=== PATIENT | female | born 1975 | race Caucasian/White ===

== ENCOUNTER 2018-05-28 01:48 | Emergency (ER) | payer OTHER, SELFPAY ==
[2018-05-28 01:54] VITALS: BP 186/95; PULSE 86; RESP 18; TEMP 36.8; O2SAT 97
[2018-05-28] MEDS: PROPARACAINE 0.5% OPHTH SOL 1 DROPS EYE-RIGHT (03:16)
--- NOTE | 2018-05-28 03:57 | ED_ITS ---
HPI - Eye Problem General Chief complaint: Eye Problems Stated complaint: right eye scratch today Time Seen by Provider: 05/28/18 03:56 Source: patient Mode of arrival: ambulatory Limitations: no limitations History of Present Illness HPI Narrative: Is a 42-year-old female who states she was scratched in the eye by her dog when it jumped up onto her face. Patient has pain in the eye. No vision changes. She has had a little bit too. No other symptoms. She does not wear glasses or contacts. She does not have an tourist information assistant. Her tetanus was updated a urine half ago. Related Data Previous Rx's Medication Instructions Recorded glipizide 5 mg PO AMAC #30 tab 03/25/17 metformin [Glucophage XR] 1,000 mg PO BID #360 tab 07/14/17 amoxicillin-pot clavulanate 875 mg PO BID #20 tab 08/05/17 [Augmentin] acyclovir [Zovirax] 400 mg PO QID #35 tab 08/10/17 oxycodone-acetaminophen [Percocet] 1 tab PO Q6HP PRN #30 tab 08/10/17 hydrochlorothiazide 25 mg PO QDAY #90 tab 09/16/17 Allergies Allergy/AdvReac Type Severity Reaction Status Date / Time benzonatate [BENZONATATE] Allergy Unknown Verified 05/28/18 05:12 ciprofloxacin [CIPROFLOXACIN] Allergy Unknown Verified 05/28/18 05:12 Sulfa (Sulfonamide Allergy Unknown Verified 05/28/18 05:12 Antibiotics) [SULFA (SULFONAMIDE ANTIBIOTICS)] Review of Systems Review of Systems All systems reviewed & are unremarkable except as noted in HPI and below Eyes Denies blurry vision, Denies change in vision, Denies eye discharge, Reports irritation, Denies loss of vision, Reports eye pain, Denies requires corrective lenses and Reports photophobia Neurologic Denies loss of vision PFSH Family History Father Hypertension Mother Hypertension Depression Social History Smoking Status: Never smoker Exam Narrative Exam Narrative: GEN: Obese female, alert and oriented x 3, patient appears to be in mild distress. HEENT: Atraumatic, pupils are equal round reactive to light, extraocular movements are intact, nares are clear, Visual acuity: See chart General: no globe trauma Eyelids: normal inspection Conjunctiva/Sclera: normal inspection on left on the right slightly injected Corneas: normal inspection, examined with fluroscein on on the right patient has 3 small corneal abrasions and a vertical linear pattern at the 10:00 position running to the 7 o'clock position. EOM: intact, no palsy/entrapment Pupils: PERRL, normal accomadation, pupil normal Anterior Chambers: normal inspection, no hypema Posterior: normal fundoscopic on [right/left] MSCL: full range of motion, normal gait NEURO:CN 2-12 intact, Initial Vital Signs Initial Vital Signs: Vital Signs Temperature 98.2 F 05/28/18 01:54 Pulse Rate 86 05/28/18 01:54 Respiratory Rate 18 05/28/18 01:54 Blood Pressure 186/95 H 05/28/18 01:54 Pulse Oximetry 97 05/28/18 01:54 Course Orders Ordered: Discontinued Medications Erythromycin (Erythromycin Ophth Oint) 1 applic EYE-RIGHT NOW ONE Stop: 05/28/18 05:13 Last Admin: 05/28/18 05:19 Dose: 1 applic Proparacaine HCl (Parcaine 0.5% Ophth Jessica) 1 drops EYE-RIGHT NOW ONE Stop: 05/28/18 03:16 Last Admin: 05/28/18 03:16 Dose: 1 drops Vital Signs - 8 hr 05/28/18 01:54 05/28/18 05:50 Temperature 98.2 F Pulse Rate 86 80 Respiratory Rate 18 18 Blood Pressure 186/95 H 140/88 Pulse Oximetry 97 98 MDM - Eye Problem MDM Narrative Medical decision making narrative: Patient was given referral to Ophthalmology in asked for follow-up. She was initially when given ofloxacin eyedrops but has allergies to ciprofloxacin as well as sulfates. Patient was started on erythromycin ointment. She and I discussed signs and symptoms to watch for and reasons to return emergently. Discharge Plan Departure Patient Disposition: Home Clinical Impression: Abrasion, corneal Discharge Date/Time: 05/28/18 05:20 Interventions: ED Discharge Assessment Last Done: 05/28/18 05:50 Instructions: DI for Corneal Abrasion Activity Restrictions/Additional Instructions: Follow-up with Ophthalmology in the next 24 hr. Call for an appointment today. Use antibiotic ointment in a thin strip along the lower lid four times daily to the right eye every 6 hr x7 days unless cleared by Ophthalmology earlier Return to the emergency department for severe eye pain, vision changes, goopy or pus-like drainage from your eye. Prescriptions: No Action glipizide 5 MG tablet 5 mg PO AMAC Qty: 30 RF: 5 metformin [Glucophage XR] 500 MG tablet extended release 24 hr 1,000 mg PO BID Qty: 360 RF: 0 amoxicillin-pot clavulanate [Augmentin] 875 MG/125 MG tablet 875 mg PO BID Qty: 20 RF: 0 acyclovir [Zovirax] 400 MG tablet 400 mg PO QID Qty: 35 RF: 0 oxycodone-acetaminophen [Percocet] 5 MG/325 MG tablet 1 tab PO Q6HP PRNQty: 30 RF: 0 hydrochlorothiazide 25 MG tablet 25 mg PO QDAY Qty: 90 RF: 0 Referrals: Radha Charles MD [Physician] - Melisa Earl MD [Primary Care Provider] -
[2018-05-28] MEDS: ERYTHROMYCIN OPHTH 1 GM OINT 1 APPLIC EYE-RIGHT (05:19)
[2018-05-28 05:50] VITALS: BP 140/88; PULSE 80; RESP 18; O2SAT 98
== END 2018-05-28 05:20 | disposition home or self-care (01) ==
PROVIDERS: Emergency Provider Emergency Medicine; PCP Family Medicine
DX: S05.01XA Injury of conjunctiva and corneal abrasion without foreign body, right eye, initial encounter (principal); W54.8XXA Other contact with dog, initial encounter
CPT/HCPCS: 99282

== ENCOUNTER → 2018-09-29 11:09 | Outpatient (CLI) | payer OTHER, SELFPAY | PROVIDERS: Visit Provider Physician Assistant | DX: R68.89 Other general symptoms and signs (principal) | CPT/HCPCS: 87400 ==

== ENCOUNTER → 2018-09-29 12:33 | Outpatient (CLI) | payer OTHER, SELFPAY ==
--- NOTE | 2018-09-29 12:35 | DI.RAD.S_ITS ---
PROCEDURE: XR CHEST 2V INDICATIONS: COUGH TECHNIQUE: 2 views of the chest were acquired. COMPARISON: None. FINDINGS: Surgical changes and devices: Fixation hardware throughout thoracic spine is seen.. Lungs and pleura: Mildly increased vascular markings and bilateral hilar region are seen with mild bronchial wall thickening. No focal infiltrate. No pleural effusions or pneumothorax. Mediastinum: Mediastinal contours are normal. Heart size is enlarged. Bones and chest wall: No suspicious bony abnormalities. Soft tissues appear unremarkable. IMPRESSION: Suggestion of mild reactive airway disease. No definite focal infiltrate. Dictated by: Amos Luis M.D. on 09/29/2018 at 13:06 Approved by: Amos Luis M.D. on 09/29/2018 at 13:06
== END ==
PROVIDERS: Visit Provider Physician Assistant
DX: R05 Cough (principal); R68.89 Other general symptoms and signs
CPT/HCPCS: 71046; 87400

== ENCOUNTER → 2020-03-31 07:57 | Outpatient (CLI) | payer OTHER, SELFPAY ==
[2020-03-31 09:06] LABS: Add Manual Diff / Slide Review NO; Basophils Absolute Auto 0 /uL (0-100); Basophils Percent Auto 0.6 % (0-2); Eosinophils Absolute Auto 100 /uL (0-450); Eosinophils Percent Auto 1.1 % (2-4); Hematocrit 39.6 % (36-46); Hemoglobin 12.5 g/dL (12.0-16.0); Lymphocytes Absolute Auto 1800 /uL (1100-4500); Lymphocytes Percent Auto 25.3 % (25-40); Mean Corpuscular HGB Conc 31.6 % (30-36); Mean Corpuscular Hemoglobin 22.2 PG (26-34); Mean Corpuscular Volume 70.2 fL (80-100); Monocytes Absolute Auto 600 /uL (0-900); Monocytes Percent Auto 8.4 % (3-14); Neutrophils Absolute Auto 4700 /uL (1500-7000); Neutrophils Percent Auto 64.6 % (50-75); Platelet Count 333 X10^3/uL (150-400); Red Blood Cell Count 5.64 X10^6/uL (4.0-5.2); Red Cell Distribution Width 16.1 % (11.6-14.8); White Blood Cell Count 7.3 X10^3/uL (4.5-11.0)
[2020-03-31 09:12] LABS: Hemoglobin A1C% w Est Avg Glu 12.3 % (4.0-6.0)
[2020-03-31 09:22] LABS: Alanine Aminotransferase 55 IU/L (<35); Albumin 4.2 g/dL (3.5-5.0); Albumin Globulin Ratio 1.1 (1.0-2.8); Alkaline Phosphatase 102 U/L (38-126); Aspartate Aminotransferase 49 IU/L (14-36); BUN Creatinine Ratio 26.2 (6-22); Bilirubin Total 0.5 mg/dL (0.2-1.3); Blood Urea Nitrogen 11 mg/dL (7-17); Calcium 9.1 mg/dL (8.4-10.2); Carbon Dioxide 27 mmol/L (22-32); Chloride 101 mmol/L (98-107); Cholesterol 157 mg/dL (140-199); Estimated Glomerular Filt Rate > 60.0 mL/min (>60); Globulin 3.7 g/dL (1.7-4.1); Glucose 313 mg/dL (70-100); HDL Cholesterol 35 mg/dL (40-60); HEMOLYSIS < 15 (0-50); LDL Cholesterol Calculated 96 mg/dL (<100); Potassium 4.1 mmol/L (3.4-5.1); Sodium 139 mmol/L (137-145); Total Protein 7.9 g/dL (6.3-8.2); Triglycerides 129 mg/dL (35-150)
--- NOTE | 2020-03-31 14:21 | DI.MG.S_ITS ---
Patient Name: PEREZ SERNA date: 1975 Sex: F Attending Physician: Elsa Hermosillo Indications: Date: 03/31/2020 14:19 At the request of: SIXTO YOON Procedure: MM screening mammo BI BILATERAL DIGITAL SCREENING MAMMOGRAM 3D/2D WITH CAD: 03/31/2020 CLINICAL: Routine screening. Family history of breast cancer. Baseline exam. No prior exams were available for comparison. The tissue of both breasts is heterogeneously dense. This may lower the sensitivity of mammography. Current study was also evaluated with a Computer Aided Detection (CAD) system. There is a possible irregular equal density focal asymmetry in the right breast at 11 o'clock anterior depth. There also are two oval equal density lymph nodes in the right axillary tail without definite fatty hilum. No other significant masses, calcifications, or other findings are seen in either breast. IMPRESSION: INCOMPLETE: NEEDS ADDITIONAL IMAGING EVALUATION The possible irregular equal density focal asymmetry in the right breast at 11 o'clock anterior depth is indeterminate. Additional views with possible ultrasound are recommended. The oval equal density lymph nodes in the right axillary tail are indeterminate. Additional views with possible ultrasound are recommended. This exam was interpreted at Station ID: [id number]. NOTE: For mammograms, a report in lay terms will be sent to the patient. Approximately 15% of breast malignancies will not be visualized mammographically. In the management of a palpable breast mass, a negative mammogram must not discourage biopsy of a clinically suspicious lesion. Electronically Signed By: Luis William M.D. aty/:04/02/2020 08:57:49 Continued Report - Page 2 of 2 Patient Name: PEREZ SERNA date: 1975 Sex: F Attending Physician: Elsa Hermosillo Indications: Date: 03/31/2020 14:19 At the request of: SIXTO YOON Procedure: MM screening mammo BI letter sent: Additional Imaging Needed ACR BI-RADS Category 0: Incomplete 3340F
== END ==
PROVIDERS: PCP Registered Nurse; Referring Provider Registered Nurse; Visit Provider Registered Nurse
DX: Z00.01 Encounter for general adult medical examination with abnormal findings (principal); Z12.31 Encounter for screening mammogram for malignant neoplasm of breast; Z80.3 Family history of malignant neoplasm of breast; E11.9 Type 2 diabetes mellitus without complications; I10 Essential (primary) hypertension
CPT/HCPCS: 36415; 77063; 77067; 80053; 80061; 83036; 85025

== ENCOUNTER → 2020-04-02 08:13 | Outpatient (CLI) | payer OTHER, SELFPAY ==
--- NOTE | 2020-04-02 08:14 | DI.US.S_ITS ---
PROCEDURE: US PELVIC COMPLETE INDICATIONS: FIBROIDS TECHNIQUE: Real-time scanning was performed of the pelvic organs, with image documentation. Additional endovaginal scanning was necessary due to incomplete visualization of the adnexal and endometrial structures by transabdominal scanning. COMPARISON: [facility], PELVIC COMPLETE, 11/18/2013, 13:38. [facility], , PELVIC COMPLETE, 05/12/2017, 7:24. FINDINGS: Transabdominal scanning: Limited scanning through the kidneys shows no hydronephrosis. No pathologic free abdominal or pelvic fluid. Endovaginal scanning: Uterus: Uterus is normal in size at 8.6 x 5.3 x 5.4 cm. The endometrium measures 14 mm in combined thickness. Hypoechoic uterine lesions are seen, which are attributed to fibroids. They measure as follows: Right posterior uterus, intramural, 2 x 2.5 x 2.3 cm Right posterior uterus, intramural, 2 x 1.9 x 1.3 cm Ovaries: The right is not seen. The left ovary measures 3.2 x 1.9 x 3 cm and demonstrates a simple appearing cyst that measures up to 2.3 cm, which is considered to be within physiologic limits.. No adnexal masses are seen. IMPRESSION: No imaging explanation is found for this patient's presenting symptoms. Uterine fibroids are seen. Nonvisualization of the right ovary. The left ovary demonstrates a 2.3 cm simple cyst, which is considered to be within physiologic limits. Dictated by: Kushal Sotelo M.D. on 04/02/2020 at 10:19 Approved by: Kushal Sotelo M.D. on 04/02/2020 at 10:22
== END ==
PROVIDERS: PCP Registered Nurse; Referring Provider Registered Nurse; Visit Provider Registered Nurse
DX: D25.1 Intramural leiomyoma of uterus (principal); N83.292 Other ovarian cyst, left side
CPT/HCPCS: 76856

== ENCOUNTER 2020-04-24 14:02 | Day surgery (SDC) | payer OTHER, SELFPAY ==
[2020-04-24] VITALS (7 sets, daily range): BP systolic 158–184; BP diastolic 79–103; PULSE 83–97; RESP 12–18; TEMP 36.7–36.8; O2SAT 95–98; BMI 63.6
--- NOTE | 2020-04-24 | PATH_ITS ---
[facility] Accession Number: [id number] . 01 Material submitted: . PART A: endometrium - ENDOMETRIAL CURETTINGS PART B: cervix - CERVICAL POLYP . 01 Clinical history: . SDC . 02 Diagnosis: A. Endometrial Curettings: Portions of disordered proliferative endometrium; negative for glandular hyperplasia, cytologic atypia, or malignancy. Some endometrial fragments demonstrate prominent vessels, suggestive of polyp, if clinical and imaging studies are concordant. There are scattered portions of myometrium with no evidence of cytologic atypia, increased mitotic activity, or necrosis; findings could be suggestive of a submucosal leiomyoma, in the appropriate clinical context. . B. Cervical Polyp: Multiple portions of endometrial polyp with benign (nonatypical / simple) glandular hyperplasia in a background of disordered proliferative endometrium; negative for atypical hyperplasia or malignancy. Fibromuscular tissue fragments, consistent with myometrium or leiomyoma, in the appropriate clinical setting; negative for glandular hyperplasia, cytologic atypia, or malignancy. [facility] 04/26/2020 1506 Local . 02 Comment: As part of routine quality tech, this case was also reviewed by Drs. Varghese and Kristina, who agree with the interpretation. . 02 Electronically signed: . Chrissie Tran MD, Pathologist NPI- [id number] . 01 Gross description: . Part A: ENDOMETRIAL CURETTINGS: Received in formalin are minute fragments of mucoid and hemorrhagic material measuring 2.0 x 2.0 x 0.4 cm in aggregate. Submitted in toto in 2 cassettes. Part B: CERVICAL POLYP: Received in formalin are multiple fragment(s) of hernandez, soft tissue measuring 0.1 x 0.1 x 0.1 cm to 3.5 x 2.5 x 1.5 cm which are serially sectioned and submitted entirely in 9 cassette(s) /MARK 04/25/2020 0146 Local . 02 Pathologist provided ICD-10: D25.9, N93.9, N84.0 . 02 CPT . 048038, 351997 Performed at: 01 [facility] [address] [id number] MD Yonatan Eli MD Phone: [phone] Performed at: 02 [facility] [address] [place], [place] [id number] MD Madeleine Varghese MD Phone: [phone]
[2020-04-24 14:40] LABS: COVID19 -Nasal RAPID Negative (Negative)
[2020-04-24] MEDS: LACTATED RINGERS 1,000 ML 100 ML IV ×2 (14:49→17:40)
[2020-04-24 15:19] LABS: Add Manual Diff / Slide Review NO; Basophils Absolute Auto 100 /uL (0-100); Eosinophils Absolute Auto 100 /uL (0-450); Eosinophils Percent Auto 0.8 % (2-4); Hematocrit 36.3 % (36-46); Hemoglobin 11.4 g/dL (12.0-16.0); Lymphocytes Absolute Auto 2500 /uL (1100-4500); Lymphocytes Percent Auto 24.2 % (25-40); Mean Corpuscular HGB Conc 31.3 % (30-36); Mean Corpuscular Hemoglobin 21.2 PG (26-34); Mean Corpuscular Volume 67.8 fL (80-100); Monocytes Absolute Auto 1000 /uL (0-900); Monocytes Percent Auto 9.3 % (3-14); Neutrophils Absolute Auto 6800 /uL (1500-7000); Neutrophils Percent Auto 64.7 % (50-75); Platelet Count 343 X10^3/uL (150-400); Red Blood Cell Count 5.35 X10^6/uL (4.0-5.2); Red Cell Distribution Width 16.2 % (11.6-14.8); White Blood Cell Count 10.5 X10^3/uL (4.5-11.0)
[2020-04-24 15:31] LABS: Hypochromasia 1+; Microcytosis 3+
--- NOTE | 2020-04-24 15:53 | PM.PREOP ---
Pre-operative Note COVID-19 COVID-19 status: Negative Result date/Date tested (Pos, Neg/Pending): 04/24/20 Interval Note History & Physical reviewed/Exam performed by Physician: Yes Changes to H&P: No
--- NOTE | 2020-04-24 16:30 | SUR.OPER ---
Lithotomy on padded OR bed, head on pillow, arms secured on padded arm boards at <90 degrees abduction. Legs secured in padded yellow fins stirrups.
--- NOTE | 2020-04-24 16:41 | SUR.OPER ---
Lithotomy on padded OR bed, head on pillow, arms secured on padded arm boards at <90 degrees abduction. Legs secured in padded yellow fins stirrups.
--- NOTE | 2020-04-24 16:52 | SUR.OPER ---
MONSELS SOLUTION INTRAVAGINAL
[2020-04-24] MEDS: SODIUM CHLORIDE 0.9% 30 ML, VASOPRESSIN 20 UNIT INJ (16:56)
--- NOTE | 2020-04-24 17:15 | PM.OP.1 ---
Operative Date/Time/Diagnoses Date of procedure: 04/24/20 Time of procedure: 17:27 Pre-op diagnosis: Prolapsed uterine fibroid Post-op diagnosis: other (Prolapsed endocervical polyp) Procedure & Clinicians Procedure: Exam under anesthesia, operative hysteroscopy, dilation and curettage Same procedure as scheduled: Yes Indications: Prolapsed suspected endocervical polyp with hemorrhage Surgeon: Ade Haerd Migration Specialist: Lynette Van Anesthesia Type: Sedation Operative Notes Findings: 4 cm x 4 cm endocervical polyp prolapsing through cervical os. Specimen(s): other (Endocervical polyp, endometrial curettings) Estimated Blood Loss (mL): 20 Procedure in detail: After informed consent was obtained, the patient was taken to the operating room where IV sedation was obtained and an LMA was placed. She was placed in the dorsal lithotomy position and prepped and draped in the usual sterile fashion. A speculum was inserted in the vagina, and the large prolapsing mass was observed. Hemostasis did previously been achieved in the office with Monsel solution, some of which was visible. The speculum was removed, and an exam under anesthesia performed. The prolapsing mass was felt to be pedunculated, on a stalk originating approximately 1 cm in from the external cervical os on the anterior wall of the cervix. The mass was grasped and twisted manually, and easily removed. The cervix was found to be dilated to 1 cm manually. The anterior lip of the cervix was grasped with a ring forceps and the hysteroscope was used to enter the endometrial cavity with no dilation necessary, though hydrodilation was difficult to maintain due to the dilated cervix. The endometrial cavity was noted to be covered in fluffy endometrium, but no calcifications, abnormal vascularity, or discrete lesions were noted. The hysteroscope was removed, and a gentle dilation and curettage was performed. The hysteroscope was reinserted into the cervix, where the remaining stalk of the prolapsed polyp was visualized. The hysteroscopic loop was used to cauterize the base of the stalk. Good hemostasis was achieved, and 2 scope pets were used to apply Monsel's to the area to maintain hemostasis. The ring forceps was removed from the cervix with good spontaneous hemostasis noted on observation. The speculum was removed from the vagina. The patient tolerated the procedure well was taken to the PACU in stable condition. IVF: 900ccs Sorbitol fluid deficit: 50 cc Complications: none Post-operative Condition: stable Disposition: PACU Plan for aftercare: Discharge home with routine precautions. NSAIDs and Tylenol for pain control.
[2020-04-24] MEDS: OXYCODONE/ACETAMINOPHEN 5/325 TABLET 1 TAB PO (17:29)
== END 2020-04-24 17:59 | disposition home or self-care (01) ==
PROVIDERS: PCP Registered Nurse; Referring Provider Obstetrics & Gynecology; Visit Provider Obstetrics & Gynecology
PROC: 0UDB8ZZ Extraction of Endometrium, Via Natural or Artificial Opening Endoscopic (ICD-10-PCS; CPT 58558; principal; 2020-04-24 16:00)
DX: D25.9 Leiomyoma of uterus, unspecified (principal); E66.01 Morbid (severe) obesity due to excess calories; Z11.59 Encounter for screening for other viral diseases; E11.9 Type 2 diabetes mellitus without complications; N84.0 Polyp of corpus uteri
CPT/HCPCS: 58558; 36415; 85025; 86850; 86900; 86901; 87635; J3010

== ENCOUNTER → 2020-04-26 14:15 | Outpatient (CLI) | payer OTHER, SELFPAY ==
--- NOTE | 2020-04-26 | DI.MG.S_ITS ---
UNILATERAL RIGHT DIGITAL DIAGNOSTIC MAMMOGRAM 3D/2D WITH ADDITIONAL VIEWS: 04/26/2020 CLINICAL: Additional evaluation requested from prior study. Comparison is made to exam dated: 03/31/2020 [facility]. The tissue of right breast is heterogeneously dense. This may lower the sensitivity of mammography. Possible focal asymmetry in the right breast at 11 o'clock anterior depth. This is not seen in additional views. Right breast calcified fibroadenoma. Benign intramammary lymph nodes. No other significant masses or calcifications are seen in the breast. IMPRESSION: BENIGN There is no mammographic evidence of malignancy. Possible focal asymmetry in the right breast does not persist on additional views. A 1 year screening mammogram is recommended. Exam findings were conveyed to the patient. This exam was interpreted at Station ID: [id number]. NOTE: For mammograms, a report in lay terms will be sent to the patient. Approximately 15% of breast malignancies will not be visualized mammographically. In the management of a palpable breast mass, a negative mammogram must not discourage biopsy of a clinically suspicious lesion. Electronically Signed By: Joaquin Sullivan M.D. slc/:04/26/2020 14:54:50 letter sent: Normal Exam ACR BI-RADS Category 2: Benign Finding(s) 3342F
== END ==
PROVIDERS: PCP Registered Nurse; Referring Provider Registered Nurse; Visit Provider Registered Nurse
DX: R92.8 Other abnormal and inconclusive findings on diagnostic imaging of breast (principal); D24.1 Benign neoplasm of right breast
CPT/HCPCS: 77065; G0279

== ENCOUNTER → 2020-05-01 08:49 | Outpatient (CLI) | payer OTHER, SELFPAY ==
--- NOTE | 2020-05-01 10:00 | DIET.PN ---
Diabetes Intake: Initial Assessment Assess: Mrs. Booth is a 44 YOF referred for type 2 diabetes. She was diagnosed one month ago, but endorses pre-diabetes for several years. She was placed on metformin and glipizide several years ago, but admits she did not take them as directed and eventually discontinued completely as she was caring for her . She has lost nearly 100lbs over the last year through dietary changes including cutting out all soda and has been eating out less since working from home. She has an exercise goal of 2000 steps per day which she typically gets by walking her dog. She received a glucometer yesterday and just began monitoring. Labs: Per pt report: A1c: 12.3 Meds: metformin 1000mg BID; glipizide 10 mg Diet: per 24 hr recall: B: eggs w/ sausage or keating L: pre- made salad D: spaghetti; beef stew; tacos; burgers Sn: smart pop; cashews; cheese Wt: 383lb Ht: 65in BMI: 63.7 DX: Altered nutrition related laboratory values related to impaired glucose metabolism, lack of previous exposure to nutrition information as evidenced by pt report, diagnosis of diabetes, previous diet high in refined carbohydrates. Intervention: 1. Completed intake assessment. Discussed barriers to care. 2. Discussed pathophysiology of diabetes. Reviewed A1c and its correlation to blood glucose numbers. Discussed recommended BG ranges. 3. Discussed importance of self-monitoring, how often, and when to check. Provided demonstration on use of glucometer. 4. Reviewed hyper/hypoglycemia and treatment. 5. Reviewed safe disposal of equipment (strip/lancets/insulin needles). 6. Created SMART goals for pt self-care and success. 7. Discussed program curriculum outline and class needs based on individual goals. SMART Goals: 1. Patient would like to lose 20lb (5%) in the next 3 mo by reducing portions, learning carbohydrate consistency, and incorporating 30 minutes of exercise 4-5 days per week. Monitor/Evaluate: Anticipate excellent compliance. Pt will attend full DSME program. Physiology and Medications class scheduled for May 08.
== END ==
PROVIDERS: PCP Registered Nurse; Referring Provider Registered Nurse; Visit Provider Registered Nurse
DX: E11.9 Type 2 diabetes mellitus without complications (principal); E66.9 Obesity, unspecified; Z68.44 Body mass index [BMI] 60.0-69.9, adult; Z71.3 Dietary counseling and surveillance; Z79.84 Long term (current) use of oral hypoglycemic drugs
CPT/HCPCS: G0108

== ENCOUNTER → 2020-05-08 09:41 | Outpatient (CLI) | payer OTHER, SELFPAY ==
--- NOTE | 2020-05-08 11:55 | DIET.PN ---
Diabetes Physiology: Intervention 1. Diabetes physiology 2. Detecting and treatment of acute and chronic complications 3. Diagnosis of and difference in types of diabetes 4. Self-monitoring and pattern management a. Demonstrate glucometer and control testing b. Explain BG results and action to take when out of range. 5. Foot , eye, dental care 6. Medications a. Oral medication classification b. Injectable c. Insulin i. Injection protocol ii. Other delivery methods
== END ==
PROVIDERS: PCP Registered Nurse; Referring Provider Registered Nurse; Visit Provider Registered Nurse
DX: E11.9 Type 2 diabetes mellitus without complications (principal); Z71.3 Dietary counseling and surveillance
CPT/HCPCS: G0109

== ENCOUNTER → 2020-05-17 10:05 | Outpatient (CLI) | payer OTHER, SELFPAY ==
--- NOTE | 2020-05-17 11:20 | DIET.PN ---
Diabetes Exercise/Lifestyle change: 1. Importance of exercise 2. FITT (frequency, intensity, time, type) 3. Strength training tips and guidelines 4. Glucose monitoring/ranges before and after a.Carbohydrate needs based on glucose ranges and duration/intensity of exercise b. Rule of 15 5. Proper foot attire 6. Developing strategies for behavior change 7. SMART Goal Setting 8. Home exercise routine demonstration (as a class)
== END ==
LOC: DIET 10:05
PROVIDERS: PCP Registered Nurse; Referring Provider Registered Nurse; Visit Provider Registered Nurse
DX: E11.9 Type 2 diabetes mellitus without complications (principal); Z71.3 Dietary counseling and surveillance
CPT/HCPCS: G0109

== ENCOUNTER → 2020-06-28 09:31 | Outpatient (CLI) | payer OTHER, SELFPAY ==
--- NOTE | 2020-06-28 11:28 | DIET.PN ---
Diabetes: Healthy Eating 1 Intervention: ? Discussed pathophysiology of diabetes and impact of nutrition/diet on blood sugar control.? Discussed fed versus non-fed state.?? ? Reviewed importance of Balance, Variety, and Moderation. ? Discussed the effect of carbohydrates/protein/fat on blood sugar control.? ? Stressed importance of consistent carbohydrate intake at each meal and provided instructions for recommended servings/portions of carbohydrates/protein per meal. Provided educational material. ? Reviewed carbohydrate counting and measuring carbohydrate content via serving sizes and reading nutrition labels.? Provided handouts.?? ? Discussed the difference between simple versus complex carbohydrates and the effect of fiber on blood sugar control.? Discussed various methods to increase fiber content in diet. ? Discussed the plate method for creating more carbohydrate conscious balanced meals. ? Stressed importance of meal timing and not going >4-5 hours between meals. Encouraged adding protein to evening snack to support glucose control overnight. ? Discussed importance of making dietary habits part of lifestyle change.
[2020-06-29 03:43] LABS: HBsAg Screen Negative (Negative); Hepatitis A Antibody IgM Negative (Negative); Hepatitis B Core Antibody IgM Negative (Negative); Hepatitis C Antibody <0.1 s/co ratio (0.0-0.9)
== END ==
PROVIDERS: PCP Registered Nurse; Referring Provider Internal Medicine; Visit Provider Registered Nurse
DX: E11.9 Type 2 diabetes mellitus without complications (principal); R74.8 Abnormal levels of other serum enzymes; Z71.3 Dietary counseling and surveillance
CPT/HCPCS: 36415; 80074; G0109

== ENCOUNTER → 2020-07-03 09:48 | Outpatient (CLI) | payer OTHER, SELFPAY ==
--- NOTE | 2020-07-03 11:47 | DIET.PN ---
Diabetes: Healthy Eating 2 Intervention: Fats effects on glucose, weight, heart disease, cholesterol Sat Vs Unsat Protein- animal and plant based options Low, med, high fat meats Sugar substitutes Sodium Health claims Grocery shopping guidelines Eating away from home Alcohol Sick day guidelines Ketone Testing
== END ==
PROVIDERS: PCP Registered Nurse; Referring Provider Registered Nurse; Visit Provider Registered Nurse
DX: E11.9 Type 2 diabetes mellitus without complications (principal); Z71.3 Dietary counseling and surveillance
CPT/HCPCS: G0109

== ENCOUNTER → 2020-07-06 07:52 | Outpatient (CLI) | payer OTHER, SELFPAY ==
[2020-07-06 09:09] LABS: Cortisol AM (Before 10AM) 13.4 ug/dL (4.46-22.7)
== END ==
PROVIDERS: PCP Internal Medicine; Referring Provider Internal Medicine; Visit Provider Internal Medicine
DX: E11.9 Type 2 diabetes mellitus without complications (principal)
CPT/HCPCS: 36415; 82533

== ENCOUNTER → 2020-07-07 07:58 | Outpatient (CLI) | payer OTHER, SELFPAY ==
[2020-07-07 10:10] LABS: Cortisol AM (Before 10AM) 1.05 ug/dL (4.46-22.7)
== END ==
PROVIDERS: PCP Internal Medicine; Referring Provider Internal Medicine; Visit Provider Internal Medicine
DX: E11.9 Type 2 diabetes mellitus without complications (principal)
CPT/HCPCS: 36415; 82533

== ENCOUNTER → 2020-07-19 08:34 | Outpatient (CLI) | payer OTHER, SELFPAY ==
[2020-07-19 09:29] LABS: Add Manual Diff / Slide Review NO; Alanine Aminotransferase 46 IU/L (<35); Albumin 4.1 g/dL (3.5-5.0); Alkaline Phosphatase 75 U/L (38-126); Aspartate Aminotransferase 45 IU/L (14-36); BUN Creatinine Ratio 29.2 (6-22); Basophils Absolute Auto 100 /uL (0-100); Bilirubin Total 0.4 mg/dL (0.2-1.3); Blood Urea Nitrogen 14 mg/dL (7-17); Calcium 9.2 mg/dL (8.4-10.2); Carbon Dioxide 27 mmol/L (22-32); Chloride 103 mmol/L (98-107); Eosinophils Absolute Auto 200 /uL (0-450); Eosinophils Percent Auto 2.5 % (2-4); Estimated Glomerular Filt Rate > 60.0 mL/min (>60); Glucose 153 mg/dL (70-100); HEMOLYSIS < 15 (0-50); Hematocrit 38.2 % (36-46); Hemoglobin 11.7 g/dL (12.0-16.0); Lymphocytes Absolute Auto 2300 /uL (1100-4500); Lymphocytes Percent Auto 26.2 % (25-40); Mean Corpuscular HGB Conc 30.7 % (30-36); Mean Corpuscular Volume 65.1 fL (80-100); Monocytes Absolute Auto 700 /uL (0-900); Monocytes Percent Auto 8.4 % (3-14); Neutrophils Absolute Auto 5500 /uL (1500-7000); Neutrophils Percent Auto 61.9 % (50-75); Platelet Count 417 X10^3/uL (150-400); Potassium 3.7 mmol/L (3.4-5.1); Red Blood Cell Count 5.87 X10^6/uL (4.0-5.2); Red Cell Distribution Width 19.4 % (11.6-14.8); Sodium 138 mmol/L (137-145); Total Protein 8.1 g/dL (6.3-8.2); White Blood Cell Count 8.8 X10^3/uL (4.5-11.0)
[2020-07-19 09:42] LABS: Hemoglobin A1C% w Est Avg Glu 7.2 % (4.0-6.0)
[2020-07-19 09:58] LABS: Cortisol AM (Before 10AM) 7.83 ug/dL (4.46-22.7)
[2020-07-19 10:23] LABS: Anisocytosis 1+; Hypochromasia 1+; Microcytosis 2+
[2020-07-19 10:24] LABS: TSH w/ Reflex to FT4 2.85 uIU/mL (0.47-4.68)
[2020-07-19 11:31] LABS: Creatinine Urine Random 274.9 mg/dL
[2020-07-19 11:36] LABS: Microalbumi Creatinin Ratio Ur 10.9 ug/mg CR (<30)
[2020-07-20 06:08] LABS: Insulin Level Total 49.9 uIU/mL (2.6-24.9)
== END ==
PROVIDERS: PCP Internal Medicine; Referring Provider Internal Medicine; Visit Provider Internal Medicine
DX: I10 Essential (primary) hypertension (principal); R53.83 Other fatigue; R71.8 Other abnormality of red blood cells; E11.9 Type 2 diabetes mellitus without complications; E78.5 Hyperlipidemia, unspecified
CPT/HCPCS: 36415; 80053; 82043; 82533; 82570; 83036; 83525; 84443; 85025

== ENCOUNTER → 2020-07-19 08:38 | Outpatient (CLI) | payer OTHER, SELFPAY ==
--- NOTE | 2020-07-19 10:01 | DIET.PN ---
DIABETES Nutrition Initial Assessment:? ASSESS:?? Mrs Booth is a 44 yof??referred for type 2 diabetes seen as part of DSME program. She has been monitoring her glucose 3x/day and taking her medication as instructed. She continues to avoid all sugar sweetened beverages and has been working on portion control and carb consistency. She is up to 2500 steps per day. ??? LABS: Per pt report:? pending ? MEDS:??metformin 1000mg BID; glipizide 5mg ? DIET: Per 24-hour recall:? B: egg sausage, vegetable smoothie L: vega master (treat meal) D: dill pickle salad Sn: smart pop, cheese sticks, cottage cheese Eating Out: 2-3 x/wk Changes in Appetite: reduced Nutrition Supplements: apple cider vinegar ? Weight: 379lb Height: 65in BMI: ? 63 ? Exercise:? 2500 steps/day NUTRITION DX 1. Altered Nutrition related labs related to impaired glucose metabolism, lack of previous exposure to accurate nutrition information as evidenced by pt report, dx of diabetes, previous diet high in refined carbohydrates.? INTERVENTION(s): 1. Reviewed pathophysiology of diabetes and impact of nutrition/diet on blood sugar control.? 2. Reviewed the effect of carbohydrates/protein/fat on blood sugar control.? Stressed importance of consistent carbohydrate intake at each meal and provided instructions for recommended servings/portions of carbohydrates/protein per meal. 3. Reviewed carbohydrate counting and measuring carbohydrate content via serving sizes and reading nutrition labels.? 4. Stressed importance of meal timing and not going >4-5 hours between meals. Recommended setting timer to remind to eat. 5. Discussed healthy weight loss goals of 1-2lbs per week through diet and exercise.? Pt agreeable to walking at least 30 minutes daily. 6. Recommend monitoring fasting and alternating 2 hr PP mealtime glucose. MONITOR/EVALUATE: Anticipate good compliance.? Follow-up scheduled for 1 month.
[2020-07-19 10:02] VITALS: BMI 63.2
== END ==
PROVIDERS: PCP Internal Medicine; Referring Provider Registered Nurse; Visit Provider Registered Nurse
DX: E11.9 Type 2 diabetes mellitus without complications (principal); Z79.84 Long term (current) use of oral hypoglycemic drugs; E66.9 Obesity, unspecified; Z68.44 Body mass index [BMI] 60.0-69.9, adult; Z71.3 Dietary counseling and surveillance
CPT/HCPCS: G0109

== ENCOUNTER → 2020-09-13 10:47 | Outpatient (CLI) | payer OTHER, SELFPAY ==
--- NOTE | 2020-09-13 12:14 | DIET.PN ---
Diabetes Follow Up Assess: Met for Ms. Booth?s 3 mo follow up visit. She is happy with how her blood sugars have been and with reduced A1c. She is feeling better with numbers in the normal ranges rather than hypoglycemic. She has added turmeric and an iron supplement as she has been having severe anemia. She has added a mid-morning snack to help limit over eating by lunch time. She admits her eating habits have not been very good the last few weeks due to work stress. Labs: A1c: 7.2 (from 12.3) Meds: metformin 1000mg BID; glipizide 5mig Dietary changes: Trying to cook at home more and eat more lean meats (chicken, loin, roast) Ht: 65in Wt: 382 BMI: 63.5 Nutrition DX: Altered nutrition related laboratory values related to impaired glucose metabolism, lack of previous exposure to nutrition information as evidenced by pt report, diagnosis of diabetes, previous diet high in refined carbohydrates. Intervention: 1. Completed follow up assessment. Reviewed barriers to care. 2. Reviewed new labs and importance of continued BG monitoring. 3. Reviewed SMART goals and made modifications where appropriate including wt management, activity, and A1c goals. 4. Discussed plan for ongoing support. Provided information for continued support and success. SMART goals: 1. Pt original goal of 25# weight loss in the next 3 mo (50# in 6mo, 100# 1 yr) by reducing portions, learning carb counting/consistency, and incorporating 30 min of exercise 4-5 days per week. Monitor/Evaluate: Pt will follow up in 3 mo to discuss new labs and barriers to care.
== END ==
PROVIDERS: PCP Internal Medicine; Referring Provider Internal Medicine; Visit Provider Internal Medicine
DX: E11.9 Type 2 diabetes mellitus without complications (principal); D64.9 Anemia, unspecified; E66.9 Obesity, unspecified; Z68.44 Body mass index [BMI] 60.0-69.9, adult; Z71.3 Dietary counseling and surveillance; Z79.84 Long term (current) use of oral hypoglycemic drugs
CPT/HCPCS: G0109

== ENCOUNTER → 2020-10-24 16:01 | Outpatient (CLI) | payer OTHER, SELFPAY ==
[2020-10-24] MEDS: COVID-19 VACC #1, MRNA(MOD) 100 MCG/0.5 ML VIAL IM (16:11)
== END ==
PROVIDERS: Visit Provider Internal Medicine
DX: Z23 Encounter for immunization (principal)
CPT/HCPCS: 0011A; 91301

== ENCOUNTER → 2020-11-21 08:47 | Outpatient (CLI) | payer OTHER, SELFPAY ==
[2020-11-21] MEDS: COVID-19 VACC #2, MRNA(MOD) 100 MCG/0.5 ML VIAL IM (08:52)
== END ==
PROVIDERS: Visit Provider Internal Medicine
DX: Z23 Encounter for immunization (principal)
CPT/HCPCS: 0012A; 91301

== ENCOUNTER → 2023-11-09 15:25 | Outpatient (CLI) | payer OTHER, SELFPAY ==
--- NOTE | 2023-11-09 15:27 | DI.MG.S_ITS ---
BILATERAL DIGITAL SCREENING MAMMOGRAM 3D/2D WITH CAD: 11/09/2023 CLINICAL: Routine screening. Family history of breast cancer. Comparison is made to exams dated: 03/31/2020 mammogram and 04/26/2020 mammogram - [facility]. There are scattered areas of fibroglandular density in both breasts (category b / 25%-50% glandular tissue). Current study was also evaluated with a Computer Aided Detection (CAD) system. There is a benign calcification in the right breast. There also are benign post operative findings in the right breast. No significant masses, calcifications, or other findings are seen in either breast. There has been no significant interval change. IMPRESSION: BENIGN There is no mammographic evidence of malignancy. A 1 year screening mammogram is recommended. Based on the Tyrer Cuzick model (a risk assessment model) the patient's lifetime risk is 19.6% and her 10 year risk is 3.9%. According to the ACR, ACS, and NCCN guidelines, an annual breast MRI exam along with mammogram is recommended if the patient's lifetime risk is 20% or greater. This exam was interpreted at Station ID: [id number]. NOTE: For mammograms, a report in lay terms will be sent to the patient. Approximately 15% of breast malignancies will not be visualized mammographically. In the management of a palpable breast mass, a negative mammogram must not discourage biopsy of a clinically suspicious lesion. Electronically Signed By: Joaquin nina/tyelr:11/10/2023 14:13:55 letter sent: Normal Exam ACR BI-RADS Category 2: Benign Finding(s) 3342F
== END ==
PROVIDERS: PCP Internal Medicine; Referring Provider Internal Medicine; Visit Provider Internal Medicine
DX: Z12.31 Encounter for screening mammogram for malignant neoplasm of breast (principal); Z80.3 Family history of malignant neoplasm of breast; R92.323 Mammographic fibroglandular density, bilateral breasts
CPT/HCPCS: 77063; 77067

== ENCOUNTER → 2023-12-16 15:11 | Outpatient (CLI) | payer OTHER, SELFPAY ==
[2023-12-21 18:55] LABS: ANA Screen, IFA Negative (.)
== END ==
PROVIDERS: PCP Internal Medicine; Referring Provider Dermatology; Visit Provider Dermatology
DX: R21 Rash and other nonspecific skin eruption (principal)
CPT/HCPCS: 36415; 86038